=== PATIENT | female | born 1970 | race Two or more races ===

== ENCOUNTER 2023-03-06 15:24 | Emergency (ER) | payer OTHER ==
[~2023-03-06] VITALS: Ht 157.5 cm; Wt 73.5 kg
[~2023-03-06 15:24] MED LIST: MOTRIN800 MG PO
[2023-03-06 17:16] LABS: HEMATOCRIT 31.1 % (36.0-45.00); HEMOGLOBIN 10.6 g/dL (12.0-15.00); MEAN CELL VOLUME 75.3 fL (80.00-100.00); MEAN CORPUSCULAR HEMOGLOBIN 25.7 pg (27.00-32.0); MEAN CORPUSCULAR HGB CONC 34.1 g/dl (32.0-36.0); PLATELET COUNT 247 K/uL (150-450); RED BLOOD COUNT 4.13 M/uL (4.00-6.00); RED CELL DISTRIBUTION WIDTH 14.4 % (11.5-14.5)
[2023-03-06 17:21] LABS: PH,URINE 5.5 (5.0-8.0); URINE APPEARANCE Cloudy; URINE BACTERIA 3869.4 uL (0.0-1933); URINE BILIRRUBIN Negative (NEGATIVE); URINE BLOOD Moderate; URINE COLOR Yellow; URINE EPITHELIAL CELLS 80.8 uL (0.0-38.8); URINE GLUCOSE Negative (NEGATIVE); URINE LEUKOCYTE Moderate; URINE NITRATE Negative; URINE PROTEIN Trace (NEGATIVE); URINE RBC 30.6 uL (0.0-20.8); URINE WBC 53.3 uL (0.0-23.2)
[2023-03-06 17:29] LABS: INR 1.1; PARTIAL THROMBOPLASTIN TIME 24.5 SECONDS (22.0-34.0); PROTHROMBIN TIME 11.5 SECONDS (9.0-11.5)
[2023-03-06 17:31] LABS: CALCIUM 9.5 mg/dL (8.5-10.1); CREATININE SERUM 0.78 mg/dL (0.55-1.02); GFR 77.55; POTASSIUM 3.35 mEq/L (3.5-5.1)
[2023-03-06 17:50] LABS: URINE CRYSTALS FEW /HPF; URINE MUCUS MODERATE
[2023-03-06] MEDS ORDERED: DUI500 PO (18:57)
== END 2023-03-06 19:13 | disposition home or self-care (01) ==
LOC: ER 15:24
PROVIDERS: General Practice
DX: K62.5 Hemorrhage of anus and rectum (principal); R10.9 Unspecified abdominal pain

== ENCOUNTER 2024-09-02 11:14 | Inpatient (IN) | payer OTHER ==
[~2024-09-02] VITALS: Ht 157.5 cm; Wt 72.6 kg
[~2024-09-02 11:14] MED LIST changes: +DUI500 PO
[2024-09-02] MEDS ORDERED: SYNTHROID75 MCG PO (11:23)
[2024-09-02] MEDS ORDERED: FAMOTIDINE20 MG PO (11:23)
[2024-09-02] MEDS ORDERED: LOSARTAN POTASS50 MG PO (11:24)
[2024-09-02] MEDS ORDERED: VANCOMYCIN HCL 1,000 MG VIAL IV ONE (13:30)
[2024-09-02] MEDS ORDERED: CEFEPIME HCL 2,000 MG VIAL IV ONE (13:30)
[2024-09-02] MEDS ORDERED: VANCOMYCIN HCL 1,000 MG VIAL ONE (13:42)
[2024-09-02] MEDS ORDERED: CEFEPIME HCL 2,000 MG VIAL ONE (13:42)
[2024-09-02 14:43] LABS: INR 1.03
[2024-09-02 14:44] LABS: COVID-19 AG NEGATIVE (NEGATIVE)
[2024-09-02 14:46] LABS: ALT/SGPT 86.0 U/L (12-78); AST/SGOT 78.0 U/L (15-37); BILIRUBIN TOTAL 1.06 mg/dL (0.3-1.2); BILIRUBIN,CONJUGATED 0.38 mg/dL (0.0-0.2); BUN CREA RATIO 15.0 (7.0-25.0); CREATININE SERUM 0.86 mg/dL (0.55-1.02); GFR 68.76; GLOBULINA 4.1 G/DL (2.4-3.5); GLUCOSE FASTING 99.0 mg/dL (65-100); OSMOLALITY SERUM 283.0 MOSM/KG (275-295)
[2024-09-02 15:00] LABS: BASO % 0.4 % (0.1-1.2); EOS # 0.03 (0.04-0.54); EOS % 0.7 % (0.7-7.0); LYMPH # 0.32 (1.18-3.74); LYMPH % 7.1 % (19.3-53.1); MEAN PLATELET VOLUME 9.50 fl (9.4-12.4); MONO # 0.07 (0.24-0.82); MONO % 1.6 % (4.7-12.5); NEUT # 4.05 (1.56-6.13); NEUT % 89.8 % (34.0-71.1); RED CELL DISTRIBUTION WIDTH 17.9 % (11.6-14.4)
[2024-09-02 15:14] LABS: URINE APPEARANCE Clear; URINE BILIRRUBIN Negative (NEGATIVE); URINE BLOOD Negative; URINE COLOR Yellow; URINE GLUCOSE Negative (NEGATIVE); URINE KETONE Negative (NEGATIVE); URINE LEUKOCYTE Trace; URINE NITRATE Negative; URINE PROTEIN Trace (NEGATIVE); URINE UROBILINOGEN 1.0 E.U./dl
[2024-09-02 15:17] LABS: URINE BACTERIA 362.2 uL (0.0-1933); URINE EPITHELIAL CELLS 10.9 uL (0.0-38.8); URINE RBC 4.4 uL (0.0-20.8); URINE WBC 19.1 uL (0.0-23.2)
[2024-09-02 15:30] LABS: URINE CAST 0.14 uL (0.0-1.40)
[2024-09-02] MEDS ORDERED: PANTOPRAZOLE SODIUM 40 MG in 0.9 % SODIUM CHLORIDE 8 ML IV PUSH SCH (20:23)
[2024-09-02] MEDS ORDERED: MORPHINE SULFATE 2 MG/ML CARTRIDGE IV PRN (20:30)
[2024-09-02] MEDS ORDERED: 0.9 % SODIUM CHLORIDE 1,000 ML IV SCH (20:30)
[2024-09-02] MEDS ORDERED: ACETAMINOPHEN 325 MG TABLET PO PRN (20:30)
[2024-09-02] MEDS ORDERED: ONDANSETRON HCL 4 MG in 0.9 % SODIUM CHLORIDE 50 ML IV PRN (20:30)
[2024-09-02] MEDS ORDERED: LOSARTAN POTASSIUM 25 MG TABLET PO SCH (20:40)
[2024-09-02] MEDS ORDERED: CEFTRIAXONE SODIUM 2,000 MG in 0.9 % SODIUM CHLORIDE 100 ML IV SCH (20:42)
[2024-09-02] MEDS ORDERED: CIPROFLOXACIN IN 5 % DEXTROSE 200 ML IV SCH (21:00)
[2024-09-03] VITALS (9 sets, daily range): BP systolic 106–122; BP diastolic 58–72; O2SAT 97–99
[2024-09-03] MEDS ORDERED: LEVOTHYROXINE SODIUM 75 MCG TABLET PO SCH (06:00)
[2024-09-04] VITALS (9 sets, daily range): BP systolic 97–127; BP diastolic 53–83; O2SAT 97–100
[2024-09-04 08:14] LABS: BASO % 0.6 % (0.1-1.2); EOS # 0.20 (0.04-0.54); EOS % 6.0 % (0.7-7.0); LYMPH # 0.68 (1.18-3.74); LYMPH % 20.2 % (19.3-53.1); MEAN PLATELET VOLUME 10.00 fl (9.4-12.4); MONO # 0.16 (0.24-0.82); MONO % 4.8 % (4.7-12.5); NEUT # 2.28 (1.56-6.13); NEUT % 67.8 % (34.0-71.1); RED CELL DISTRIBUTION WIDTH 17.8 % (11.6-14.4)
[2024-09-04 08:23] LABS: BUN CREA RATIO 17.0 (7.0-25.0); CREATININE SERUM 0.78 mg/dL (0.55-1.02); GFR 76.96; GLUCOSE FASTING 85.0 mg/dL (65-100); OSMOLALITY SERUM 281.0 MOSM/KG (275-295)
[2024-09-05] VITALS (10 sets, daily range): BP systolic 115–131; BP diastolic 65–79; O2SAT 97–100
[2024-09-06 01:16] VITALS: O2SAT 100
[2024-09-06 05:06] VITALS: O2SAT 100
[2024-09-06] MEDS ORDERED: PANTOPRAZOLE SODIUM 40 MG TABLET.DR PO SCH (09:00)
[2024-09-06 09:16] VITALS: O2SAT 100
[2024-09-06 09:35] VITALS: BP 125/80
[2024-09-06 14:16] VITALS: O2SAT 100
== END 2024-09-06 14:46 | disposition home or self-care (01) | DRG 315 ==
LOC: ER 11:14 → MEDI 20:41
PROVIDERS: Emergency Medicine; ADMIT Student in an Organized Health Care Education/Training Program; ATTEND Student in an Organized Health Care Education/Training Program
PROC: BW21YZZ Computerized Tomography (CT Scan) of Abdomen and Pelvis using Other Contrast (ICD-10-PCS; 2024-09-02)
PROC: 4A12X4Z Monitoring of Cardiac Electrical Activity, External Approach (ICD-10-PCS; principal; 2024-09-03)
DX: T80.211A Bloodstream infection due to central venous catheter, initial encounter (principal); C18.9 Malignant neoplasm of colon, unspecified; C78.00 Secondary malignant neoplasm of unspecified lung; C78.7 Secondary malignant neoplasm of liver and intrahepatic bile duct; D63.0 Anemia in neoplastic disease; Z92.21 Personal history of antineoplastic chemotherapy; I10 Essential (primary) hypertension; E03.9 Hypothyroidism, unspecified

== ENCOUNTER 2025-02-03 14:48 | Inpatient (IN) | payer OTHER ==
[~2025-02-03] VITALS: Ht 157.5 cm; Wt 67.6 kg
[~2025-02-03 14:48] MED LIST changes: +FAMOTIDINE20 MG PO; +LOSARTAN POTASS50 MG PO; +SYNTHROID75 MCG PO
[2025-02-03] MEDS ORDERED: 0.9 % SODIUM CHLORIDE 1,000 ML IV SCH (17:30)
[2025-02-03 19:21] LABS: BASO % 0.4 % (0.1-1.2); EOS # 0.04 (0.04-0.54); EOS % 1.4 % (0.7-7.0); LYMPH # 0.68 (1.18-3.74); LYMPH % 24.0 % (19.3-53.1); MEAN PLATELET VOLUME 9.50 fl (9.4-12.4); MONO # 0.34 (0.24-0.82); MONO % 12.0 % (4.7-12.5); NEUT # 1.74 (1.56-6.13); NEUT % 61.5 % (34.0-71.1)
[2025-02-03 19:26] LABS: RED CELL DISTRIBUTION WIDTH 23.7 % (11.6-14.4)
[2025-02-03 19:54] LABS: INR 1.16
[2025-02-03 20:16] LABS: ALT/SGPT 37.0 U/L (12-78); AST/SGOT 74.0 U/L (15-37); BUN CREA RATIO 18.0 (7.0-25.0); CREATININE SERUM 0.79 mg/dL (0.55-1.02); GFR 75.84; GLOBULINA 4.5 G/DL (2.4-3.5); GLUCOSE FASTING 105.0 mg/dL (65-100); LDH 232.0 U/L (84-246); OSMOLALITY SERUM 282.0 MOSM/KG (275-295)
[2025-02-03 20:18] LABS: BILIRUBIN,CONJUGATED 12.91 mg/dL (0.0-0.2)
[2025-02-03 20:21] LABS: BILIRUBIN TOTAL 16.26 mg/dL (0.3-1.2)
[2025-02-03 22:15] LABS: URINE APPEARANCE Clear; URINE BILIRRUBIN Large (NEGATIVE); URINE BLOOD Negative; URINE COLOR Dark Yellow; URINE GLUCOSE Negative (NEGATIVE); URINE KETONE Negative (NEGATIVE); URINE LEUKOCYTE Small; URINE NITRATE Positive; URINE PROTEIN Trace (NEGATIVE); URINE UROBILINOGEN 1.0 E.U./dl
[2025-02-03 22:20] LABS: URINE BACTERIA 70.7 uL (0.0-1933); URINE EPITHELIAL CELLS 7.2 uL (0.0-38.8); URINE RBC 6.8 uL (0.0-20.8)
[2025-02-03 22:23] LABS: URINE CAST 0.00 uL (0.0-1.40); URINE WBC 1.2 uL (0.0-23.2)
[2025-02-04] MEDS ORDERED: METRONIDAZOLE/SODIUM CHLORIDE 500 MG/100 ML PIGGYBACK IV STA (06:36)
[2025-02-04] MEDS ORDERED: CEFTRIAXONE SODIUM 2,000 MG VIAL IV STA (06:36)
[2025-02-04] MEDS ORDERED: ONDANSETRON HCL 4 MG in 0.9 % SODIUM CHLORIDE 50 ML IV PRN (07:45)
[2025-02-04] MEDS ORDERED: ACETAMINOPHEN 500 MG GEL..CAP PO PRN (07:45)
[2025-02-04] MEDS ORDERED: 0.9 % SODIUM CHLORIDE 1,000 ML IV SCH (07:45)
[2025-02-04] MEDS ORDERED: FAMOTIDINE/PF 20 MG in 0.9 % SODIUM CHLORIDE 8 ML IV PUSH SCH (09:00)
[2025-02-04] MEDS ORDERED: ENOXAPARIN SODIUM 40 MG/0.4 ML SYRINGE SUBCUTANEO SCH (09:00)
[2025-02-04] MEDS ORDERED: LOSARTAN POTASSIUM 25 MG TABLET PO SCH (09:00)
[2025-02-04] MEDS ORDERED: CHOLESTYRAMINE/ASPARTAME LIGHT 4 G/PKT PACKET PO SCH (09:00)
[2025-02-04 11:56] VITALS: BP 117/70
[2025-02-04] MEDS ORDERED: PIPERACILLIN/TAZOBACTAM SODIUM 3.375 GM in DEXTROSE 5 % IN WATER 100 ML IV SCH (12:00)
[2025-02-04 18:30] VITALS: BP 100/65
[2025-02-05 02:46] VITALS: BP 102/68; O2SAT 97
[2025-02-05] MEDS ORDERED: LEVOTHYROXINE SODIUM 75 MCG TABLET PO SCH (06:00)
[2025-02-05 08:31] LABS: ALT/SGPT 31.0 U/L (12-78); AST/SGOT 66.0 U/L (15-37)
[2025-02-05 08:50] VITALS: BP 98/62; O2SAT 96
[2025-02-05 09:07] LABS: BILIRUBIN TOTAL 18.07 mg/dL (0.3-1.2); BILIRUBIN,CONJUGATED 14.42 mg/dL (0.0-0.2)
[2025-02-05 18:20] VITALS: BP 90/55
[2025-02-06 02:14] VITALS: BP 104/67; O2SAT 96
[2025-02-06 09:01] VITALS: BP 90/50; O2SAT 97
[2025-02-06] MEDS ORDERED: DICLOFENAC SODIUM 100 MG SUPP.RECT RECTAL ONE (18:30)
[2025-02-06] MEDS ORDERED: PIPERACILLIN/TAZOBACTAM SODIUM 3.375 GM VIAL IV NR (19:45)
[2025-02-06] MEDS ORDERED: FAMOTIDINE/PF 20 MG in 0.9 % SODIUM CHLORIDE 8 ML IV PUSH SCH (21:00)
[2025-02-06 23:01] VITALS: BP 108/64
[2025-02-07] MEDS ORDERED: PIPERACILLIN/TAZOBACTAM SODIUM 3.375 GM VIAL IV SCH (01:00)
[2025-02-07 03:55] VITALS: BP 100/62; O2SAT 100
[2025-02-07 08:00] VITALS: BP 80/50; O2SAT 100
[2025-02-07 08:37] LABS: BASO % 0.3 % (0.1-1.2); EOS # 0.04 (0.04-0.54); EOS % 0.6 % (0.7-7.0); LYMPH # 0.64 (1.18-3.74); LYMPH % 9.5 % (19.3-53.1); MEAN PLATELET VOLUME 9.60 fl (9.4-12.4); MONO # 0.42 (0.24-0.82); MONO % 6.2 % (4.7-12.5); NEUT # 5.59 (1.56-6.13); NEUT % 82.8 % (34.0-71.1); RED CELL DISTRIBUTION WIDTH 23.0 % (11.6-14.4)
[2025-02-07 09:00] VITALS: BP 80/50; O2SAT 100
[2025-02-07 09:28] LABS: ALT/SGPT 25.0 U/L (12-78); AST/SGOT 61.0 U/L (15-37); BUN CREA RATIO 11.0 (7.0-25.0); CREATININE SERUM 0.87 mg/dL (0.55-1.02); GFR 67.85; GLOBULINA 3.3 G/DL (2.4-3.5); GLUCOSE FASTING 74.0 mg/dL (65-100); OSMOLALITY SERUM 281.0 MOSM/KG (275-295)
[2025-02-07 09:37] LABS: BILIRUBIN,CONJUGATED 13.56 mg/dL (0.0-0.2)
[2025-02-07 09:38] LABS: BILIRUBIN TOTAL 17.16 mg/dL (0.3-1.2)
[2025-02-07] MEDS ORDERED: NOREPINEPHRINE BITARTRATE 8 MG in DEXTROSE 5 % IN WATER 250 ML IV SCH (10:15)
[2025-02-07 19:02] VITALS: BP 90/50; O2SAT 99
[2025-02-07 21:42] VITALS: BP 123/82
[2025-02-08] MEDS ORDERED: PIPERACILLIN/TAZOBACTAM SODIUM 3.375 GM in 0.9 % SODIUM CHLORIDE 100 ML IV SCH
[2025-02-08 02:35] VITALS: BP 103/63; O2SAT 97
[2025-02-08 02:37] VITALS: BP 132/74; O2SAT 97
[2025-02-08 08:00] VITALS: BP 126/76; O2SAT 98
[2025-02-08 10:41] LABS: BASO % 0.3 % (0.1-1.2); EOS # 0.02 (0.04-0.54); EOS % 0.5 % (0.7-7.0); LYMPH # 0.35 (1.18-3.74); LYMPH % 9.5 % (19.3-53.1); MEAN PLATELET VOLUME 10.40 fl (9.4-12.4); MONO # 0.41 (0.24-0.82); MONO % 11.1 % (4.7-12.5); NEUT # 2.89 (1.56-6.13); NEUT % 78.1 % (34.0-71.1); RED CELL DISTRIBUTION WIDTH 20.0 % (11.6-14.4)
[2025-02-08 13:25] LABS: BILIRUBIN TOTAL 20.42 mg/dL (0.3-1.2)
[2025-02-08 13:42] LABS: BILIRUBIN,CONJUGATED 12.35 mg/dL (0.0-0.2)
[2025-02-08 18:06] VITALS: BP 120/71
[2025-02-09 03:00] VITALS: BP 115/58; O2SAT 96
[2025-02-09 06:21] LABS: BASO % 0.6 % (0.1-1.2); EOS # 0.00 (0.04-0.54); EOS % 0.0 % (0.7-7.0); LYMPH # 0.42 (1.18-3.74); LYMPH % 13.0 % (19.3-53.1); MEAN PLATELET VOLUME 9.50 fl (9.4-12.4); MONO # 0.57 (0.24-0.82); NEUT # 2.22 (1.56-6.13); NEUT % 68.5 % (34.0-71.1); RED CELL DISTRIBUTION WIDTH 20.7 % (11.6-14.4)
[2025-02-09 07:08] LABS: ALT/SGPT 31.0 U/L (12-78); AST/SGOT 87.0 U/L (15-37)
[2025-02-09 07:40] LABS: BILIRUBIN,CONJUGATED 15.07 mg/dL (0.0-0.2)
[2025-02-09 07:41] LABS: BILIRUBIN TOTAL 18.68 mg/dL (0.3-1.2)
[2025-02-09 08:04] LABS: MONO % 17.6 % (4.7-12.5)
[2025-02-09] MEDS ORDERED: DIATRIZOATE MEGLUMINE, SODIUM 30 ML BOTTLE PO NR (09:00)
[2025-02-09] MEDS ORDERED: POLYETHYLENE GLYCOL 3350 17 GM BLIST.PACK PO SCH (09:00)
[2025-02-09 09:09] VITALS: BP 105/60; O2SAT 96
[2025-02-09] MEDS ORDERED: IOVERSOL 320 MG/ML - 50 ML VIAL IV ONE (15:05)
[2025-02-09] MEDS ORDERED: GLUCAGON 1 MG VIAL ONE (15:05)
[2025-02-09 19:43] VITALS: BP 125/79
[2025-02-09] MEDS ORDERED: OSELTAMIVIR PHOSPHATE 75 MG CAPSULE PO SCH (21:00)
[2025-02-10 02:48] VITALS: BP 111/75; O2SAT 94
[2025-02-10 06:23] LABS: BASO % 0.3 % (0.1-1.2); EOS # 0.00 (0.04-0.54); EOS % 0.0 % (0.7-7.0); LYMPH # 0.58 (1.18-3.74); LYMPH % 17.1 % (19.3-53.1); MEAN PLATELET VOLUME 9.80 fl (9.4-12.4); MONO # 0.49 (0.24-0.82); NEUT # 2.30 (1.56-6.13); NEUT % 67.6 % (34.0-71.1); RED CELL DISTRIBUTION WIDTH 19.5 % (11.6-14.4)
[2025-02-10 06:41] LABS: MONO % 14.4 % (4.7-12.5)
[2025-02-10 06:54] LABS: ALT/SGPT 34.0 U/L (12-78); AST/SGOT 101.0 U/L (15-37); BUN CREA RATIO 16.0 (7.0-25.0); CREATININE SERUM 0.7 mg/dL (0.55-1.02); GFR 87.2; GLOBULINA 3.6 G/DL (2.4-3.5); GLUCOSE FASTING 79.0 mg/dL (65-100); OSMOLALITY SERUM 285.0 MOSM/KG (275-295)
[2025-02-10 07:30] LABS: BILIRUBIN,CONJUGATED 14.65 mg/dL (0.0-0.2)
[2025-02-10 07:31] LABS: BILIRUBIN TOTAL 18.9 mg/dL (0.3-1.2)
[2025-02-10 08:55] VITALS: BP 125/83; O2SAT 97
[2025-02-10] MEDS ORDERED: DIATRIZOATE MEGLUMINE, SODIUM 30 ML BOTTLE PO NR (14:15)
[2025-02-10 19:00] VITALS: BP 112/73; O2SAT 100
[2025-02-11 02:51] VITALS: BP 117/76; O2SAT 99
[2025-02-11 09:37] VITALS: BP 115/71; O2SAT 100
[2025-02-11 14:31] LABS: ob POSITIVE (NEGATIVE)
[2025-02-11 18:03] VITALS: BP 125/75; O2SAT 100
[2025-02-12 02:24] VITALS: BP 125/75; O2SAT 99
[2025-02-12 09:32] VITALS: BP 110/74; O2SAT 99
[2025-02-12] MEDS ORDERED: SODIUM CL 0.9% 100 ML IV.SOLN IV ONE (10:28)
[2025-02-12 18:25] VITALS: BP 140/82; O2SAT 96
[2025-02-12] MEDS ORDERED: OCTREOTIDE ACETATE 1,000 MCG/5 ML VIAL IJ SCH (19:09)
[2025-02-12] MEDS ORDERED: PANTOPRAZOLE SODIUM 40 MG/VIAL VIAL IV SCH (19:10)
[2025-02-13 03:39] VITALS: BP 128/80; O2SAT 99
[2025-02-13] MEDS ORDERED: OCTREOTIDE ACETATE 5MCG/ML REDILUIDO IV SCH ×2 (09:00→12:00)
[2025-02-13 11:28] VITALS: BP 121/75; O2SAT 94
[2025-02-13 13:17] LABS: BASO % 0.3 % (0.1-1.2); EOS # 0.03 (0.04-0.54); EOS % 0.8 % (0.7-7.0); LYMPH # 0.60 (1.18-3.74); LYMPH % 16.6 % (19.3-53.1); MEAN PLATELET VOLUME 9.50 fl (9.4-12.4); MONO # 0.67 (0.24-0.82); NEUT # 2.24 (1.56-6.13); NEUT % 61.9 % (34.0-71.1); RED CELL DISTRIBUTION WIDTH 22.1 % (11.6-14.4)
[2025-02-13 13:26] LABS: MONO % 18.5 % (4.7-12.5)
[2025-02-13 13:52] LABS: ALT/SGPT 39.0 U/L (12-78); AST/SGOT 109.0 U/L (15-37); BILIRUBIN,CONJUGATED 9.3 mg/dL (0.0-0.2); BUN CREA RATIO 37.0 (7.0-25.0); CREATININE SERUM 0.46 mg/dL (0.55-1.02); GFR 141.56; GLOBULINA 3.3 G/DL (2.4-3.5); GLUCOSE FASTING 120.0 mg/dL (65-100); OSMOLALITY SERUM 299.0 MOSM/KG (275-295)
[2025-02-13 14:12] LABS: BILIRUBIN TOTAL 11.42 mg/dL (0.3-1.2)
[2025-02-13 16:25] VITALS: BP 83/53; O2SAT 100
[2025-02-13] MEDS ORDERED: SODIUM CHLORIDE 0.45 % 1,000 ML IV SCH (22:00)
[2025-02-14 00:55] VITALS: BP 90/64; O2SAT 99
[2025-02-14 09:18] VITALS: BP 95/58; O2SAT 97
[2025-02-14] MEDS ORDERED: CARVEDILOL 3.125 MG TABLET PO SCH (17:00)
[2025-02-14 18:17] VITALS: BP 125/80; O2SAT 100
[2025-02-15 01:17] LABS: BASO % 1.1 % (0.1-1.2); EOS # 0.07 (0.04-0.54); EOS % 1.5 % (0.7-7.0); LYMPH # 0.72 (1.18-3.74); LYMPH % 15.6 % (19.3-53.1); MEAN PLATELET VOLUME 9.10 fl (9.4-12.4); MONO # 0.89 (0.24-0.82); NEUT # 2.66 (1.56-6.13); NEUT % 57.4 % (34.0-71.1); RED CELL DISTRIBUTION WIDTH 19.9 % (11.6-14.4)
[2025-02-15 01:52] LABS: ALT/SGPT 43.0 U/L (12-78); AST/SGOT 139.0 U/L (15-37); BUN CREA RATIO 21.0 (7.0-25.0); CREATININE SERUM 0.66 mg/dL (0.55-1.02); GFR 93.33; GLOBULINA 3.5 G/DL (2.4-3.5); GLUCOSE FASTING 117.0 mg/dL (65-100); OSMOLALITY SERUM 292.0 MOSM/KG (275-295)
[2025-02-15 01:53] LABS: BILIRUBIN TOTAL 13.13 mg/dL (0.3-1.2)
[2025-02-15 02:26] LABS: LYMPHOCYTE MAN 18.0 %; METAMYELOCYTE 3.0 %; MONO % 19.2 % (4.7-12.5); MONOCYTE MAN 14.0 %; NEUTROPHILS MAN 65.0 %
[2025-02-15 03:20] VITALS: BP 120/70; O2SAT 97
[2025-02-15 09:34] VITALS: BP 140/84; O2SAT 100
[2025-02-15] MEDS ORDERED: SPIRONOLACTONE 50 MG TABLET PO NR (14:30)
[2025-02-15 18:15] VITALS: BP 123/80
[2025-02-16 03:16] VITALS: BP 108/72; O2SAT 98
[2025-02-16] MEDS ORDERED: SPIRONOLACTONE 50 MG TABLET PO SCH (09:00)
[2025-02-16 09:41] LABS: BASO % 0.5 % (0.1-1.2); EOS # 0.07 (0.04-0.54); EOS % 1.7 % (0.7-7.0); LYMPH # 0.90 (1.18-3.74); LYMPH % 22.2 % (19.3-53.1); MEAN PLATELET VOLUME 8.90 fl (9.4-12.4); MONO # 0.77 (0.24-0.82); NEUT # 2.18 (1.56-6.13); NEUT % 53.6 % (34.0-71.1); RED CELL DISTRIBUTION WIDTH 20.8 % (11.6-14.4)
[2025-02-16 09:42] VITALS: BP 134/83; O2SAT 95
[2025-02-16 09:53] LABS: MONO % 19.0 % (4.7-12.5)
[2025-02-16 10:38] LABS: ALT/SGPT 55.0 U/L (12-78); AST/SGOT 149.0 U/L (15-37); BUN CREA RATIO 17.0 (7.0-25.0); CREATININE SERUM 0.69 mg/dL (0.55-1.02); GFR 88.66; GLOBULINA 3.8 G/DL (2.4-3.5); GLUCOSE FASTING 144.0 mg/dL (65-100); OSMOLALITY SERUM 287.0 MOSM/KG (275-295)
[2025-02-16 10:42] LABS: BILIRUBIN TOTAL 15.82 mg/dL (0.3-1.2)
[2025-02-16 19:06] LABS: BILI PERITONEAL FLUID 2.59 mg/dl; GLU PERITONEAL FLUID 145.0 mg/dl; LDH PERITONEAL FLUID 141.0 U/L; TP PERITONEAL FLUID 0.7 g/dl
[2025-02-16 22:04] VITALS: BP 130/88
[2025-02-17 03:12] VITALS: BP 116/72; O2SAT 97
[2025-02-17 10:18] VITALS: BP 188/67; O2SAT 98
[2025-02-17 21:36] VITALS: BP 107/72
[2025-02-18 01:06] VITALS: BP 94/60; O2SAT 93
[2025-02-18 17:52] VITALS: BP 91/60; O2SAT 96
[2025-02-19 02:32] VITALS: BP 129/78; O2SAT 94
[2025-02-19 10:08] VITALS: BP 100/69; O2SAT 98
== END 2025-02-19 14:38 | disposition home or self-care (01) | DRG 374 ==
LOC: ER 14:49 → MEDJ 02-04 07:47 → SEC-K 02-04 07:47 → MEDJ 02-04 08:50
PROVIDERS: General Practice; Internal Medicine; Internal Medicine Infectious Disease; Radiology Vascular & Interventional Radiology; Student in an Organized Health Care Education/Training Program; ADMIT Student in an Organized Health Care Education/Training Program; ATTEND Student in an Organized Health Care Education/Training Program
PROC: BW40ZZZ Ultrasonography of Abdomen (ICD-10-PCS; 2025-02-03)
PROC: BW21YZZ Computerized Tomography (CT Scan) of Abdomen and Pelvis using Other Contrast (ICD-10-PCS; 2025-02-03)
PROC: BF37ZZZ Magnetic Resonance Imaging (MRI) of Pancreas (ICD-10-PCS; 2025-02-04)
PROC: 0F758DZ Dilation of Right Hepatic Duct with Intraluminal Device, Via Natural or Artificial Opening Endoscopic (ICD-10-PCS; 2025-02-06)
PROC: BF13YZZ Fluoroscopy of Gallbladder and Bile Ducts using Other Contrast (ICD-10-PCS; 2025-02-06)
PROC: XFJB8A7 Inspection of Hepatobiliary Duct using Single-use Duodenoscope, New Technology Group 7 (ICD-10-PCS; 2025-02-06)
PROC: 0F798DZ Dilation of Common Bile Duct with Intraluminal Device, Via Natural or Artificial Opening Endoscopic (ICD-10-PCS; principal; 2025-02-06 16:30)
PROC: 30233N1 Transfusion of Nonautologous Red Blood Cells into Peripheral Vein, Percutaneous Approach (ICD-10-PCS; 2025-02-07)
PROC: 0F768DZ Dilation of Left Hepatic Duct with Intraluminal Device, Via Natural or Artificial Opening Endoscopic (ICD-10-PCS; 2025-02-09)
PROC: BF10YZZ Fluoroscopy of Bile Ducts using Other Contrast (ICD-10-PCS; 2025-02-09)
PROC: XFJB8A7 Inspection of Hepatobiliary Duct using Single-use Duodenoscope, New Technology Group 7 (ICD-10-PCS; 2025-02-09)
PROC: 8E0ZXY6 Isolation (ICD-10-PCS; 2025-02-09)
PROC: BB24YZZ Computerized Tomography (CT Scan) of Bilateral Lungs using Other Contrast (ICD-10-PCS; 2025-02-09)
PROC: BW21YZZ Computerized Tomography (CT Scan) of Abdomen and Pelvis using Other Contrast (ICD-10-PCS; 2025-02-09)
PROC: 30243N1 Transfusion of Nonautologous Red Blood Cells into Central Vein, Percutaneous Approach (ICD-10-PCS; 2025-02-09)
PROC: 05HY33Z Insertion of Infusion Device into Upper Vein, Percutaneous Approach (ICD-10-PCS; 2025-02-09)
PROC: 0W9G3ZZ Drainage of Peritoneal Cavity, Percutaneous Approach (ICD-10-PCS; 2025-02-15)
DX: C78.89 Secondary malignant neoplasm of other digestive organs (principal); J10.00 Influenza due to other identified influenza virus with unspecified type of pneumonia; K83.1 Obstruction of bile duct; K56.7 Ileus, unspecified; K91.89 Other postprocedural complications and disorders of digestive system; C77.9 Secondary and unspecified malignant neoplasm of lymph node, unspecified; C77.0 Secondary and unspecified malignant neoplasm of lymph nodes of head, face and neck; C18.9 Malignant neoplasm of colon, unspecified; C78.02 Secondary malignant neoplasm of left lung; C78.01 Secondary malignant neoplasm of right lung; R18.8 Other ascites; J90 Pleural effusion, not elsewhere classified; I85.00 Esophageal varices without bleeding; C78.7 Secondary malignant neoplasm of liver and intrahepatic bile duct; E80.6 Other disorders of bilirubin metabolism; D72.818 Other decreased white blood cell count; I95.89 Other hypotension; D64.89 Other specified anemias; D63.0 Anemia in neoplastic disease; D69.6 Thrombocytopenia, unspecified; R16.1 Splenomegaly, not elsewhere classified; E03.9 Hypothyroidism, unspecified; I10 Essential (primary) hypertension